=== PATIENT | female | born 1955 | race Caucasian/White ===

== ENCOUNTER 2021-04-30 10:55 | Outpatient (CLI) | payer OTHER, SELFPAY ==
[2021-04-30 12:33] LABS: Alanine Aminotransferase 18 U/L (4-35); Albumin Level 4.4 g/dL (3.5-5.1); Alkaline Phosphatase 97 U/L (38-126); Anion Gap 8 mmol/L (8-16); Aspartate Amino Transferase 30 U/L (14-36); Bilirubin,Total 0.2 mg/dL (0.2-1.3); Blood Urea Nitrogen 29 mg/dL (7-17); Calcium 9.1 mg/dL (8.4-10.2); Carbon Dioxide 27 mmol/L (22-30); Chloride 103 mmol/L (98-107); Cholesterol 141 mg/dL (0-200); Estimated Glomerular Filt Rate > 60; Glucose 94 mg/dL (65-110); HDL Direct 54 mg/dL; Potassium 4.4 mmol/L (3.4-5.0); Sodium 138 mmol/L (137-145); Triglycerides 101 mg/dL (<150)
[2021-04-30 12:44] LABS: LDL Cholesterol Direct 57 mg/dL
[2021-04-30 13:00] LABS: Thyroid Stimulating Hormone 0.131 uIU/mL (0.465-4.680)
== END 2021-04-30 10:56 | disposition home or self-care (01) ==
LOC: ANHLAB 11:24
PROVIDERS: PCP Internal Medicine; Visit Provider Nurse Practitioner
DX: G47.00 Insomnia, unspecified (principal); F32.9 Major depressive disorder, single episode, unspecified; Z13.220 Encounter for screening for lipoid disorders; I10 Essential (primary) hypertension
CPT/HCPCS: 36415; 80053; 80061; 84443

== ENCOUNTER → 2021-10-16 15:06 | Outpatient (CLI) | payer OTHER, SELFPAY ==
--- NOTE | ~2021-10-16 | XR_ITS ---
EXAMINATION: XR wrist LT 2V DATE: 10/16/2021 15:23 INDICATION: Left wrist injury post fall TECHNIQUE: Posteroanterior, ulnar deviation, oblique, and lateral views of the left wrist were obtain ed. COMPARISON: none FINDINGS: Relatively recent-appearing comminuted intra-articular fracture of the distal left radius with impact ion of the central aspect of the lunate fossa where there is an approximately 3 mm wide lucent fractu re gap. 10 degree dorsal tilt of the distal articular surface. There appears to be some sclerosis francine ng the fracture line and suggestion of small amount of nonbridging callus formation suggesting this c ould be subacute. Nondisplaced chronic nonunited ulnar styloid avulsion fracture with corticated andrey ins. There is widening of the scapholunate interval with increased scapholunate angle consistent with likely scapholunate ligament disruption. Small amount of chondrocalcinosis in the region of the tria ngular fibrocartilage complex. Polyarticular osteoarthritis, severe at the first carpometacarpal join t and mild at the radiocarpal, triscaphe and first metacarpophalangeal joints. Soft tissue swelling a bout the wrist. IMPRESSION: 1. Acute or subacute comminuted and impacted intra-articular fracture of the distal left radius as de tailed above. 2. Age-indeterminate disruption of the scapholunate ligament with widening of the scapholunate interv al and increased scapholunate angle. 3. Chronic nonunited ulnar styloid avulsion fracture. 4. Polyarticular osteoarthritis at the left hand and wrist, severe at the first carpometacarpal joint . Reviewed, dictated and finalized at location A. IMPRESSION: 1. Acute or subacute comminuted and impacted intra-articular fracture of the di stal left radius as detailed above. 2. Age-indeterminate disruption of the scapholunate ligament with widening of t he scapholunate interval and increased scapholunate angle. 3. Chronic nonunited ulnar styloid avulsion fracture. 4. Polyarticular osteoarthritis at the left hand and wrist, severe at the first carpometacarpal joint.
== END ==
PROVIDERS: PCP Internal Medicine; Visit Provider Nurse Practitioner
DX: M19.032 Primary osteoarthritis, left wrist (principal)
CPT/HCPCS: 73100

== ENCOUNTER 2022-01-29 13:45 | Outpatient (RCR) | payer OTHER, SELFPAY ==
--- NOTE | 2022-01-29 15:20 | PTOPEVAL ---
PHYSICAL THERAPY EVALUATION AND PLAN OF CARE Thank you for referring Aletha Floyd to [facility].? The patient is scheduled to be seen for therapy? 1x/week for 5 weeks. Please review, sign, date and return this plan of care AARTI. I agree with and certify that the following plan of care is medically necessary. Referring Physician Date Attending Provider: Chente Arriaga MD Diagnosis acute on chronic back pain Subjective Information Has a history of thoracolumbar Query Text:As Reported By Patient/ scoliosis with chronic back Family pain. Several weeks ago she fell in a pot hole while in the [employer] parking lot and she is experiencing an increase in pain and sypmtoms that go down the right LE. Self Report Pain Assessment Spine, Lumbar Reported Pain Level 8 Pain Description Aching,Radiating Pain Radiation Right Leg Pain Frequency Acute,Continuous Pain Score Pain Score 8: Self Report Interventions Used Interventions Used By Clinicians Exercise,Position Change Pain Relief Interventions Used By Medication Patient Cervical and Lumbar ROM Lumbar ROM Lumbar Flexion Active Ankle Query Text:Hands to: Lumbar Comments fused through her spine due to scoliosis Lower Extremity Range of Motion General Lower Extremity Range of Motion Reason Not Measured WFL/Left,WFL/Right Gross Lower Extremity Range of Motion reports increased pain when Comments lying flat in supine Lower Extremity Muscle Strength Testing General Lower Extremity Strength Gross Lower Extremity Strength hip flexion: 4/5 with increased pain in glutes and low back hip abduction: 3/5 hip extension: 3-/5 with pain Posture Posture Standing Position Head/C-Spine Posture Forward Head Thoracic Spine Posture Fixed Scoliosis on (R), Increased Kyphosis Thorax Posture (R) Prominent Lumbar Spine Posture Fixed Scoliosis on (L),Flexed Gait Assessment Gait Pattern Assessment Gait Pattern Narrow Based Gait,Weaving Gait Other Gait Observations near loss of balance while turning around in standing PT Clinical Summary Lana is a 66 yo female presenting to outpatient physical therapy with subacute new onset low back symptoms with radicular pain. She does have
--- NOTE | 2022-02-11 16:28 | PCPTNOTE ---
Patient called & cancelled scheduled appointment this date.
--- NOTE | 2022-02-20 11:25 | PCPTNOTE ---
Patient did not show up for scheduled appointment this date. Called and they said that she has been sick in bed all morning.
--- NOTE | 2022-02-25 12:54 | PCPTNOTE ---
Patient did not show up for scheduled appointment this date. Called patient and was told she was sleeping, due to being sick.
--- NOTE | 2022-03-04 13:07 | PCPTNOTE ---
Patient did not show up for scheduled appointment this date. Called and spoke with patient about discharging and getting a new order to come back when she is able to come to therapy.
--- NOTE | 2022-03-04 14:12 | PCPTNOTE ---
PHYSICAL THERAPY DISCHARGE 03-04-22 Attending Provider: Becky Clinton, [employer] Patient:Aletha Floyd Date of :1955 Mrs. Floyd has not returned for any further treatments since the PT evaluation on 01/29/2022,for the diagnosis of back pain, therefore she will be discharged at this time. She called/canceled 1 and then did not show for 3 appointments. When she was called, she stated that her is ill and she cannot make it in for any more therapy at this time. Thank you for referring Aletha to [facility].
== END 2022-03-04 15:22 | disposition home or self-care (01) ==
LOC: ANHPT 13:45
PROVIDERS: PCP Internal Medicine; Referring Provider Nurse Practitioner; Visit Provider Nurse Practitioner
DX: M54.50 Low back pain, unspecified (principal); G89.29 Other chronic pain
CPT/HCPCS: 97110; 97162; 99199

== ENCOUNTER 2023-04-02 14:42 | Emergency (ER) | payer OTHER, SELFPAY ==
[2023-04-02 15:21] VITALS: BP 149/72; PULSE 99; RESP 16; TEMP 37.6; O2SAT 99
[2023-04-02 15:45] VITALS: BP 149/72; PULSE 99; RESP 16; TEMP 37.6; O2SAT 99
--- NOTE | 2023-04-02 16:33 | ED.URI ---
HPI - URI/Sore Throat General Chief Complaint: Upper Respiratory Infection Stated Complaint: cough,headache,body aches,fever Time Seen by Provider: 04/02/23 16:20 Source: patient and RN notes reviewed Mode of arrival: ambulatory Limitations: no limitations History of Present Illness HPI Narrative: The patient presents today with a 2 week history of nasal congestion, headache, body aches, cough. Cough is worse at night. She has tried several [id number] medications for symptoms prior to arrival without relief. Denies shortness of breath. She is a nonsmoker, however, her and friends smoke inside their home. Related Data Home Medications Medication Instructions Recorded Confirmed alprazolam 0.5 mg tablet mg 04/02/23 duloxetine 30 mg capsule,delayed mg PO 04/02/23 release Allergies Allergy/AdvReac Type Severity Reaction Status Date / Time codeine Allergy Intermediate HIVES, Verified 04/02/23 15:02 ITCHING Review of Systems Review of Systems: CONSTITUTIONAL: Denies fever, chills, or sweats.+ body aches EYES: Denies visual changes, redness, or discharge. ENT: Denies rhinorrhea, sore throat, or otalgia.+ congestion CARDIOVASCULAR: Denies chest pain, palpitations, or edema. RESPIRATORY: Denies dyspnea.+ cough GASTROINTESTINAL: Denies abdominal pain, nausea, vomiting, or diarrhea. GENITOURINARY: Denies dysuria or hematuria. SKIN: Denies rash, itching, or wounds. MUSCULOSKELETAL: Denies back pain, joint pain, or myalgia. NEUROLOGIC: Denies numbness, tingling, or weakness.+ headache PSYCH: Denies depression or anxiety. PMFSH Past Medical History Medical History Allergies BPPV (benign paroxysmal positional vertigo) Chronic GERD Chronic low back pain Depression Hx of breast cancer R mastectomy in 1995 Hypertension Osteoarthritis Osteoporosis Surgical History Surgical History Previous back surgery S/P knee replacement S/P mastectomy Family History Family History Father Cirrhosis of liver Mother COPD (chronic obstructive pulmonary disease) Sibling Heart disease Unknown Hypertension Tuberculosis Cancer Grandparent Cancer Social History Social History Smoking status: Never smoker Second hand tobacco smoke exposure: No Alcohol intake: current Drinks per week: 3 Substance use: current Substance use type: marijuana and other Lack of Transportation: No Lack of Food: Sometimes True Current Housing: I Have Housing Concerned About Future Housing: No Difficulty Paying Gas/Electric Bills: No Difficulty Paying for Meds: No Currently Unemployed: No Education: High School Diploma/GED Difficulty w/ Childcare or Family Care: No Comments At time of signature, I have reviewed and agree with nursing past medical, surgical, social and family history unless otherwise noted. Please see nursing chart for further information. There is no relevant family history pertinent to the presenting complaint Exam Narrative: GENERAL: Well-appearing, well-nourished, and in no acute distress. HEAD: Normocephalic, atraumatic. EYES: EOMI. No redness or drainage. Conjunctivae normal. ENT: Mucous membranes pink and moist. Nares clear. No rhinorrhea. TMs normal bilaterally. Throat normal. Uvula midline. NECK: Normal AROM. Supple. No lymphadenopathy. CHEST: No respiratory distress. Clear to auscultation. Harsh frequent cough noted. HEART: Regular rate and rhythm. No murmur appreciated. Normal peripheral pulses. EXTREMITIES: Normal range of motion. No edema. SKIN: Warm, dry, no rash. Capillary refill normal. Normal skin turgor. NEURO: No focal deficits. Alert and oriented x3. Gait steady. PSYCH: Normal affect. No signs
== END 2023-04-02 16:40 | disposition home or self-care (01) ==
PROVIDERS: Emergency Provider Nurse Practitioner
DX: J40 Bronchitis, not specified as acute or chronic (principal); J01.90 Acute sinusitis, unspecified; K21.9 Gastro-esophageal reflux disease without esophagitis; I10 Essential (primary) hypertension; M19.90 Unspecified osteoarthritis, unspecified site; M81.0 Age-related osteoporosis without current pathological fracture; Z85.3 Personal history of malignant neoplasm of breast; Z90.11 Acquired absence of right breast and nipple
CPT/HCPCS: 99213; G0463